=== PATIENT | female | born 1990 | race Caucasian/White ===

== ENCOUNTER 2021-08-08 22:05 | Emergency (ER) | payer SELFPAY ==
[~2021-08-08] VITALS: Ht 165.1 cm; Wt 56.7 kg
--- NOTE | 2021-08-08 22:52 | NUR ---
BIB SELF C/O CHEST TIGHTNESS AND NUMBNESS/TINGLING TO LEFT ARM WHILE ROLLERSKATING A COUPLE HOURS PRIOR UNABLE TO SPECIFY. HX ANXIETY AND TACHYARYTHMIA. PLACED ON DIRECTOR BUILDING IS CURRENTLY TACHYCARDIC AND EXPRESSES ANXIETY. PA WAS AT BEDSIDE FOR EVAL. BLOOD DRAWN AND SENT TO LAB.
[2021-08-08] MEDS ORDERED: LORAZEPAM INJ 2 MG/ML VIAL IV ONE (23:00)
[2021-08-08] MEDS ORDERED: IV NS 0.9% 1,000 ML BAG IV ONE (23:00)
[2021-08-08] MEDS ORDERED: LORAZEPAM INJ 2 MG/ML VIAL ONE (23:01)
[2021-08-08 23:05] LABS: BASOPHILS # (AUTO) 0.1 K/uL (0.0-0.2); BASOPHILS % (AUTO) 0.6 % (0.0-2.0); EOSINOPHILS % (AUTO) 0.4 % (0.0-6.0); HEMATOCRIT 41 % (33-45); HEMOGLOBIN 14.2 g/dL (11.5-14.8); LYMPHOCYTES # (AUTO) 2.8 K/uL (0.8-4.8); MEAN CORPUSCULAR HGB CONC 35 g/dl (31.0-36.0); MEAN CORPUSCULAR VOLUME 93 fL (82-100); MONOCYTES # (AUTO) 0.7 K/uL (0.1-1.30); MONOCYTES % (AUTO) 7.7 % (2.0-12.0); NEUTROPHILS # (AUTO) 5.8 K/uL (1.8-8.9); NEUTROPHILS % (AUTO) 61.3 % (43.0-81.0); PLATELET COUNT (AUTO) 343 K/uL (150-450); RED BLOOD CELL COUNT(AUTO) 4.39 MIL/uL (4.0-5.2); WHITE BLOOD COUNT (AUTO) 9.4 K/uL (4.3-11.0)
--- NOTE | 2021-08-08 23:08 | NUR ---
ADDENDUM: Intravenous End Time Documentation: Normal saline 1 liter (IV-WO) : start time: 2308 pm ; end time: 0008 am: IV site: [facility] PIV # 18 Port #1
[2021-08-08 23:16] LABS: CALCIUM, SERUM 9.2 mg/dL (8.5-10.1)
[2021-08-08 23:26] LABS: POTASSIUM 2.8 mmol/L (3.5-5.1)
[2021-08-08] MEDS ORDERED: POTASSIUM CHLORIDE 20 MEQ TAB.PRT.SR PO ONE ×2 (23:30→23:42)
[2021-08-08] MEDS ORDERED: IOHEXOL-350 100 ML VIAL IV ONE (23:34)
[2021-08-08] MEDS ORDERED: IV NS 0.9% 250 ML IV ONE (23:34)
[2021-08-08] MEDS ORDERED: POTASSIUM CL. PREMIX PERIPHER. 50 ML ONE (23:36)
--- NOTE | 2021-08-08 23:49 | NUR ---
BROUGHT TO CT AND BACK
[2021-08-09] MEDS: POTASSIUM CL. PREMIX PERIPHER. 50 ML IV SCH ×2 (00:01→00:30)
--- NOTE | 2021-08-09 00:37 | NUR ---
Patient discharged to home in stable condition. Written and verbal after care instructions given. Patient verbalizes understanding of instruction. IV line removed.
[2021-08-09 01:06] VITALS: BP 116/81
[2021-08-09] MEDS ORDERED: POTASSIUM CL. PREMIX PERIPHER. 50 ML ONE (01:10)
== END 2021-08-09 01:15 | disposition home or self-care (01) ==
LOC: ER 22:08
DX: F41.9 Anxiety disorder, unspecified (principal); E87.6 Hypokalemia; Z86.16 Personal history of COVID-19; Z60.2 Problems related to living alone
CPT/HCPCS: 36415; 71045; 71275; 80048; 84484; 84702; 85025; 85730; 93005 ×2; 96365; 96375; 99285; J2060; J3480 ×2; J7050; Q9967